=== PATIENT | female | born 1955 | race Caucasian/White ===

== ENCOUNTER → 2018-10-10 | Outpatient (CLI) | payer BC, OTHER ==
[~2018-10-10] MED LIST: AUGMENTIN 250 M1 TAB PO; BYETTA 10M600 MCG/SY SC; CALCIUM 600/VIT1 CAP PO; CHROMIUM PO; CINNAMON PO; CINNAMON500 MG PO; CITRACAL PLUS1 TAB PO; DIFLUCAN150 MG PO; FISH OIL 1000MG1 CAP PO; GLUCOTROL XL5 MG/TAB PO; HUMALOG PEN100 U/ML SC; HYZAAR 12.5 MG-1 TAB PO; HYZAAR 50-12.1 UDTAB PO; LANTUS SOLOS100 U/ML SC; LEVAQUIN 5500 MG/TA1 PO; LEVAQUIN 750MG750 M1 PO; LEVEMIR FLEX100 U/ML SQ; MAGNESIUM250 M1 PO; OMEGA-3 FISH1200 MG PO; PRAVACHOL 40MG40 MG PO; PRINZIDE 12.5 M1 TAB PO; PROAIR HFA0.09 MG/AC IH; PROBIOTIC-MAJOR PO; SYNTHROID0.05 MG/TA PO; TIROSINT50 MCG PO; VALTREX1 GM PO; XANAX .25M0.25 MG/TA PO; ZITHROMAX Z PA250 MG PO
== END ==
LOC: MC.RAD 07:16
DX: Z12.31 Encounter for screening mammogram for malignant neoplasm of breast (principal)

== ENCOUNTER → 2019-05-16 | Outpatient (CLI) | payer BC, OTHER | LOC: DIA.ED 14:38 | DX: E11.9 Type 2 diabetes mellitus without complications (principal); E78.5 Hyperlipidemia, unspecified; I10 Essential (primary) hypertension | CPT/HCPCS: G0108 ==

== ENCOUNTER → 2019-06-01 | Outpatient (CLI) | payer BC, OTHER | LOC: DIA.ED 07:16 | DX: E11.9 Type 2 diabetes mellitus without complications (principal); E78.5 Hyperlipidemia, unspecified; I10 Essential (primary) hypertension; Z79.4 Long term (current) use of insulin | CPT/HCPCS: G0108 ==

== ENCOUNTER → 2019-07-10 | Outpatient (CLI) | payer BC, OTHER | LOC: DIA.ED 10:53 | DX: E11.9 Type 2 diabetes mellitus without complications (principal); E78.5 Hyperlipidemia, unspecified; I10 Essential (primary) hypertension; Z79.4 Long term (current) use of insulin | CPT/HCPCS: G0108 ==

== ENCOUNTER → 2019-12-06 | Outpatient (CLI) | payer BC, OTHER | LOC: MC.RAD 07:26 | DX: Z12.31 Encounter for screening mammogram for malignant neoplasm of breast (principal) ==

== ENCOUNTER → 2021-05-01 | Outpatient (CLI) | payer BC, OTHER | LOC: MC.RAD 08:10 | DX: Z12.31 Encounter for screening mammogram for malignant neoplasm of breast (principal) ==

== ENCOUNTER → 2022-07-27 | Outpatient (CLI) | payer BC, MEDICARE, OTHER | LOC: MC.RAD 07:22 | DX: Z12.31 Encounter for screening mammogram for malignant neoplasm of breast (principal) ==